=== PATIENT | female | born 1935 | race Caucasian/White ===

== ENCOUNTER 2017-03-25 13:28 | Emergency (ER) | payer MEDICARE ==
[2017-03-25 13:44] VITALS: RESP 18; TEMP 98.6
[2017-03-25] MEDS ORDERED: Labetalol 5 mg/ml Inj 20ML IV STA (14:09)
--- NOTE | 2017-03-25 14:21 | ED PDOC ---
Arrival/HPI - General Chief Complaint: High Blood Pressure Time Seen by Provider: 03/25/17 13:45 Historian: Patient - History of Present Illness Narrative History of Present Illness (Text): 03/25/17 14:10 89 year old female, whose past medical history includes hypertension, presents to the emergency department complaining of high blood pressure after not taking her medication for the past three days. She currently does not remember high blood pressure medication or primary medical doctor in [facility]. Patient denies any fever, chills, chest pain, shortness of breath, nausea, vomiting, diarrhea, urinary symptoms, back pain, neck pain, headache, dizziness, or any other complaints. Time/Duration: Other (3 days) Symptom Onset: Gradual Symptom Course: Unchanged Activities at Onset: Light Context: Home Past Medical History - Provider Review Nursing Documentation Reviewed: Yes - Infectious Disease Hx of Infectious Diseases: None - Cardiac Hx Hypertension: Yes - Neurological Hx Alzheimer's Disease: Yes HX Cerebrovascular Accident: Yes (x2) Hx Dementia: Yes - Psychiatric Hx Substance Use: No Family/Social History - Physician Review Nursing Documentation Reviewed: Yes Family/Social History: No Known Family HX Smoking Status: Never Smoked Hx Alcohol Use: No Hx Substance Use: No Allergies/Home Meds Allergies/Adverse Reactions: Allergies No Known Allergies Allergy (Verified 03/25/17 13:44) Review of Systems - Physician Review All systems were reviewed & negative as marked: Yes - Review of Systems Constitutional: absent: Fevers, Other (Chills) Respiratory: absent: SOB Cardiovascular: absent: Chest Pain Gastrointestinal: absent: Diarrhea, Nausea, Vomiting Genitourinary Female: absent: Frequency, Hematuria Musculoskeletal: absent: Back Pain Neurological: absent: Headache, Dizziness Physical Exam Vital Signs Reviewed: Yes Vital Signs Temp Pulse Resp BP Pulse Ox 03/25/17 16:00 82 154/105 H 03/25/17 15:12 70 18 145/105 H 98 03/25/17 14:35 91 H 195/95 H 03/25/17 13:41 98.6 F 91 H 18 195/95 H 100 Temperature: Afebrile Blood Pressure: Hypertensive Pulse: Regular Respiratory Rate: Normal Appearance: Positive for: Well-Appearing, Non-Toxic, Comfortable Pain Distress: None Mental Status: Positive for: Alert and Oriented X 3 - Systems Exam Head: Present: Atraumatic, Normocephalic Pupils: Present: PERRL Extroacular Muscles: Present: EOMI Conjunctiva: Present: Normal Mouth: Present: Moist Mucous Membranes Neck: Present: Normal Range of Motion Respiratory/Chest: Present: Clear to Auscultation, Good Air Exchange. No: Respiratory Distress, Accessory Muscle Use Cardiovascular: Present: Regular Rate and Rhythm, Normal S1, S2. No: Murmurs Abdomen: Present: Normal Bowel Sounds. No: Tenderness, Distention, Peritoneal Signs Back: Present: Normal Inspection Upper Extremity: Present: Normal Inspection. No: Cyanosis, Edema Lower Extremity: Present: Normal Inspection. No: Edema Neurological: Present: GCS=15, CN II-XII Intact, Speech Normal Skin: Present: Warm, Dry, Normal Color. No: Rashes Psychiatric: Present: Alert, Oriented x 3, Normal Insight, Normal Concentration Medical Decision Making ED Course and Treatment: 03/25/17 14:10 Impression: 81 year old female presents complaining of high blood pressure after not taking her medication for 3 days. Plan: -- Labs -- Trandate -- Reassess and disposition Progress Notes: 03/25/17 15:50 Patient's BP improved in the ED. Patient continued to be asymptomatic. Spoke to Hanane Albrecht ([phone]) who is Odalis Albrecht's health proxy. She explained to me all of the medication's the patient is currently taking; Lisinopril 10 mg daily, Metoprolol 25 mg daily, and Rosuvastatin 5 mg daily. Hanane also explained to me how it would be in the patient's benefit to be discharged and sent back to [place] and for her sister to to her home. I discussed this with Hanane's sister, patient's daughter, who was at bedside and she agreed to discuss this further with patient and her sister. - Lab Interpretations Lab Results: 03/25/17 15:00 Lab Results 03/25/17 15:00: Sodium 143, Potassium 4.3, Chloride 106, Carbon Dioxide 25, Anion Gap 16, BUN 15, Creatinine 0.8, Est GFR ( Amer) > 60, Est GFR (Non- Af Amer) > 60, Random Glucose 90, Calcium 9.1 I have reviewed the lab results: Yes - Medication Orders Current Medication Orders: Discontinued Medications Labetalol HCl (Trandate) 10 mg IV STAT STA Stop: 03/25/17 14:10 Last Admin: 03/25/17 14:35 Dose: 10 mg Lisinopril (Zestril) 10 mg PO STAT STA Stop: 03/25/17 15:43 Last Admin: 03/25/17 16:00 Dose: 10 mg Metoprolol Succinate (Toprol Xl) 25 mg PO STAT STA Stop: 03/25/17 15:44 Last Admin: 03/25/17 16:00 Dose: 25 mg - Scribe Statement The provider has reviewed the documentation as recorded by the Scribe Gilson Sim All medical record entries made by the Scribe were at my direction and personally dictated by me. I have reviewed the chart and agree that the record accurately reflects my personal performance of the history, physical exam, medical decision making, and the department course for this patient. I have also personally directed, reviewed, and agree with the discharge instructions and disposition. Amarilis Vasquez Provider Scribe Attestation: All medical record entries made by the Scribe were at my direction and personally dictated by me. I have reviewed the chart and agree that the record accurately reflects my personal performance of the history, physical exam, medical decision making, and the department course for this patient. I have also personally directed, reviewed, and agree with the discharge instructions and disposition. Disposition/Present on Arrival - Present on Arrival Any Indicators Present on Arrival: No History of DVT/PE: No History of Uncontrolled Diabetes: No Urinary Catheter: No History of Decub. Ulcer: No History Surgical Site Infection Following: None - Disposition Have Diagnosis and Disposition been Completed?: Yes Diagnosis: Hypertension Disposition: HOME/ ROUTINE Disposition Time: 15:45 Patient Plan: Discharge Condition: IMPROVED Discharge Instructions (ExitCare): Hypertension (ED) Additional Instructions: Ms Albrecht, thank you for letting us take care of you today. Your provider was Dr. Lei. You were treated for Hypertension. The emergency medical care you received today was directed at your acute symptoms. If you were prescribed any medication, please fill it and take as directed. It may take several days for your symptoms to resolve. Return to the Emergency Department if your symptoms worsen, do not improve, or if you have any other problems. Please contact your doctor or call one of the physicians/clinics you have been referred to that are listed on the Patient Visit Information form that is included in your discharge packet. Bring any paperwork you were given at discharge with you along with any medications you are taking to your follow up visit. Our treatment cannot replace ongoing medical care by a primary care provider (PCP) outside of the emergency department. Thank you for allowing the [facility] team to be part of your care today. If you had an X-Ray or CT scan: A Radiologist will review the ED reading if any change in treatment is needed we will contact you. If you had a blood, urine, or wound culture: It will take several days for the results, if any change in treatment is needed we will contact you. If you had an STI test: It will take 48 hours for the results. Please call after 1 week if you have not heard back. Prescriptions: Lisinopril [Prinivil] 10 mg PO DAILY #30 tablet Metoprolol Succinate [Toprol XL] 25 mg PO DAILY #30 tab Rosuvastatin Calcium 5 mg PO DAILY #30 tablet Referrals: Rogelio Aguilar, [Staff Provider] - Follow up with primary PCP,NO [Primary Care Provider] - Follow up with primary Forms: [employer] (Khmer)
[2017-03-25 15:12] VITALS: O2SAT 98
[2017-03-25 15:22] LABS: BLOOD UREA NITROGEN 15 mg/dL (7-21); CALCIUM 9.1 mg/dL (8.4-10.5); CARBON DIOXIDE 25 mmol/L (21-33); CHLORIDE 106 mmol/L (98-107); GFR AFRICAN-AMERICAN > 60; GLUCOSE,RANDOM 90 mg/dL (70-110); POTASSIUM 4.3 mmol/L (3.6-5.0); SODIUM 143 mmol/L (132-148)
[2017-03-25] MEDS ORDERED: Metoprolol Succinate 25 mg XL Tab PO STA (15:43)
[2017-03-25 16:00] VITALS: BP 154/105; PULSE 82
== END 2017-03-25 16:09 | disposition home or self-care (01) ==
LOC: ED 13:28
DX: I10 Essential (primary) hypertension (principal); Z86.73 Personal history of transient ischemic attack (TIA), and cerebral infarction without residual deficits